=== PATIENT | female | born 2005 | race Hispanic/Latino ===

== ENCOUNTER 2023-02-15 15:41 | Emergency (ER) | payer OTHER ==
[~2023-02-15] VITALS: Ht 157.5 cm; Wt 56.0 kg
[2023-02-15 18:01] LABS: BASO # 0.1 10^3/uL (0.0-0.2); BASO % 0.8 % (0.0-1.0); EOS # 0.1 10^3/uL (0.0-0.5); EOS % 1.2 % (0.0-3.0); HEMOGLOBIN 11.7 g/dl (12.0-15.5); LYMPH % 33.7 % (24.0-44.0); MEAN CORPUSCULAR HEMOGLOBIN 28.7 pg (27.0-33.0); MEAN CORPUSCULAR HGB CONC 32.5 g/dl (32.0-36.5); MEAN CORPUSCULAR VOLUME 88.5 fl (80.0-96.0); MONO # 0.4 10^3/uL (0.0-0.8); NEUTROPHILS # 3.4 10^3/uL (1.5-8.5); NEUTROPHILS % 57.1 % (36.0-66.0); PLATELET COUNT, AUTOMATED 230 10^3/uL (150-450); RED BLOOD COUNT 4.07 10^6/uL (4.00-5.40)
[2023-02-15 18:10] LABS: LIPASE 33 U/L (12-53)
[2023-02-15 18:12] LABS: ALBUMIN 4.3 G/DL (3.2-5.2); ALKALINE PHOSPHATASE 89 U/L (46-116); ALT/SGPT 11 U/L (7.0-40); AST/SGOT 15 U/L (<34); BILIRUBIN,DIRECT 0.1 MG/DL (<0.4); BILIRUBIN,TOTAL 0.4 MG/DL (0.3-1.2); BLOOD UREA NITROGEN 14 MG/DL (9-23); CALCIUM LEVEL 9.7 MG/DL (8.5-10.1); CARBON DIOXIDE LEVEL 25 MMOL/L (20-31); CHLORIDE LEVEL 106 MMOL/L (98-107); CREATININE FOR GFR 0.69 MG/DL (0.55-1.30); GLUCOSE, FASTING 88 MG/DL (60-100); SODIUM LEVEL 139 MMOL/L (136-145)
[2023-02-15 18:23] LABS: HCG, SERUM QUALITATIVE NEGATIVE (NEGATIVE)
[2023-02-15 20:40] VITALS: BP 112/67; TEMP 98.5; O2SAT 100
[2023-02-15 20:55] LABS: GC DNA AMPLIFICATION NEGATIVE (NEGATIVE)
== END 2023-02-15 20:41 | disposition home or self-care (01) ==
LOC: M ED 15:41
DX: N83.11 Corpus luteum cyst of right ovary (principal)

== ENCOUNTER 2023-05-16 16:33 | Emergency (ER) | payer OTHER ==
[~2023-05-16] VITALS: Ht 157.5 cm; Wt 50.3 kg
[2023-05-16] MEDS ORDERED: IBUP-1114 PO (16:59)
[2023-05-16] MEDS ORDERED: OXYC1TAB23 PO (16:59)
[2023-05-16] MEDS ORDERED: PROC5TAB57 PO (17:00)
[2023-05-16] MEDS ORDERED: NS 1,000 ML IV ONE (18:05)
[2023-05-16 18:32] LABS: BLOOD UREA NITROGEN 10 MG/DL (9-23); CALCIUM LEVEL 8.9 MG/DL (8.5-10.1); CARBON DIOXIDE LEVEL 23 MMOL/L (20-31); CHLORIDE LEVEL 103 MMOL/L (98-107); CREATININE FOR GFR 0.64 MG/DL (0.55-1.30); GLUCOSE, FASTING 109 MG/DL (60-100); POTASSIUM SERUM 3.4 MMOL/L (3.5-5.1); SODIUM LEVEL 136 MMOL/L (136-145)
[2023-05-16 18:46] LABS: HCG, SERUM QUANTITATIVE 3964.6 MIU/ML (<4.2)
[2023-05-16 19:02] LABS: BASO % 0.4 % (0.0-1.0); EOS % 0.1 % (0.0-3.0); HEMATOCRIT 32.7 % (36.0-47.0); HEMOGLOBIN 11.3 g/dl (12.0-15.5); LYMPH # 0.7 10^3/uL (1.5-5.0); LYMPH % 9.3 % (24.0-44.0); MEAN CORPUSCULAR HGB CONC 34.6 g/dl (32.0-36.5); MEAN CORPUSCULAR VOLUME 83.8 fl (80.0-96.0); MONO # 0.4 10^3/uL (0.0-0.8); MONO % 5.5 % (2.0-8.0); NEUTROPHILS # 6.6 10^3/uL (1.5-8.5); NEUTROPHILS % 84.6 % (36.0-66.0); PLATELET COUNT, AUTOMATED 168 10^3/uL (150-450); WHITE BLOOD COUNT 7.8 10^3/uL (4.0-10.0)
[2023-05-16] MEDS ORDERED: METHYLERGONOVINE MALEATE 0.2MG/ML 1ML VIAL IM STA (21:02)
[2023-05-16] MEDS ORDERED: AMBI10TA PO (21:49)
[2023-05-16] MEDS ORDERED: METH0.2T53 PO (21:49)
[2023-05-16 22:20] VITALS: BP 96/72; TEMP 98.2; O2SAT 99
== END 2023-05-16 22:22 | disposition home or self-care (01) ==
LOC: M ED 16:33
DX: O03.4 Incomplete spontaneous abortion without complication (principal)
CPT/HCPCS: 36415; 76801; 80048; 84702; 85025; 86850; 86900; 86901; 96372; 99284; J2210

== ENCOUNTER 2023-07-31 10:38 | Emergency (ER) | payer OTHER ==
[~2023-07-31] VITALS: Ht 157.5 cm; Wt 50.5 kg
[~2023-07-31 10:38] MED LIST: AMBI10TA PO; IBUP-1114 PO; METH0.2T53 PO; OXYC1TAB23 PO; PROC5TAB57 PO
[2023-07-31 11:59] LABS: BASO % 0.5 % (0.0-1.0); EOS # 0.1 10^3/uL (0.0-0.5); EOS % 0.9 % (0.0-3.0); HEMATOCRIT 34.8 % (36.0-47.0); HEMOGLOBIN 11.9 g/dl (12.0-15.5); LYMPH # 1.7 10^3/uL (1.5-5.0); LYMPH % 26.8 % (24.0-44.0); MEAN CORPUSCULAR HEMOGLOBIN 29.2 pg (27.0-33.0); MEAN CORPUSCULAR HGB CONC 34.2 g/dl (32.0-36.5); MEAN CORPUSCULAR VOLUME 85.5 fl (80.0-96.0); MONO # 0.3 10^3/uL (0.0-0.8); NEUTROPHILS # 4.3 10^3/uL (1.5-8.5); NEUTROPHILS % 66.6 % (36.0-66.0); PLATELET COUNT, AUTOMATED 191 10^3/uL (150-450); RED BLOOD COUNT 4.07 10^6/uL (4.00-5.40); WHITE BLOOD COUNT 6.4 10^3/uL (4.0-10.0)
[2023-07-31 12:23] LABS: BLOOD UREA NITROGEN 6 MG/DL (9-23); CALCIUM LEVEL 8.9 MG/DL (8.5-10.1); CARBON DIOXIDE LEVEL 26 MMOL/L (20-31); CHLORIDE LEVEL 105 MMOL/L (98-107); CREATININE FOR GFR 0.57 MG/DL (0.55-1.30); GLUCOSE, FASTING 90 MG/DL (60-100); SODIUM LEVEL 136 MMOL/L (136-145)
[2023-07-31 12:25] LABS: HCG, SERUM QUALITATIVE POSITIVE (NEGATIVE)
[2023-07-31 14:39] LABS: HCG, SERUM QUANTITATIVE 86067.3 MIU/ML (<4.2)
[2023-07-31 15:19] VITALS: BP 99/58; TEMP 98.6; O2SAT 97
== END 2023-07-31 15:25 | disposition home or self-care (01) ==
LOC: M ED 10:38
DX: O26.891 Other specified pregnancy related conditions, first trimester (principal); Z3A.08 8 weeks gestation of pregnancy; Z87.59 Personal history of other complications of pregnancy, childbirth and the puerperium

== ENCOUNTER 2023-08-24 11:01 | Emergency (ER) | payer OTHER ==
[~2023-08-24] VITALS: Ht 157.5 cm; Wt 49.1 kg
[2023-08-24] MEDS: METOCLOPRAMIDE INJ 10MG/2ML VIAL IV ONE (12:31)
[2023-08-24] MEDS: NS 1,000 ML IV ONE (12:31)
[2023-08-24] MEDS: ACETAMINOPHEN *IV* 1,000 MG in IV 1 EA IV ONE (12:31)
[2023-08-24 12:45] LABS: BASO % 0.3 % (0.0-1.0); EOS % 0.6 % (0.0-3.0); HEMATOCRIT 31.9 % (36.0-47.0); LYMPH # 1.6 10^3/uL (1.5-5.0); LYMPH % 24.3 % (24.0-44.0); MEAN CORPUSCULAR HEMOGLOBIN 29.1 pg (27.0-33.0); MEAN CORPUSCULAR HGB CONC 34.5 g/dl (32.0-36.5); MEAN CORPUSCULAR VOLUME 84.4 fl (80.0-96.0); MONO # 0.4 10^3/uL (0.0-0.8); MONO % 5.5 % (2.0-8.0); NEUTROPHILS # 4.4 10^3/uL (1.5-8.5); NEUTROPHILS % 69.1 % (36.0-66.0); PLATELET COUNT, AUTOMATED 174 10^3/uL (150-450); RED BLOOD COUNT 3.78 10^6/uL (4.00-5.40); WHITE BLOOD COUNT 6.4 10^3/uL (4.0-10.0)
[2023-08-24 13:07] LABS: LIPASE 25 U/L (12-53)
[2023-08-24 13:09] LABS: ALBUMIN 3.5 G/DL (3.2-5.2); ALKALINE PHOSPHATASE 56 U/L (46-116); ALT/SGPT 12 U/L (7.0-40); AST/SGOT 11 U/L (<34); BILIRUBIN,DIRECT 0.1 MG/DL (<0.4); BILIRUBIN,TOTAL 0.4 MG/DL (0.3-1.2); BLOOD UREA NITROGEN 6 MG/DL (9-23); CALCIUM LEVEL 8.5 MG/DL (8.5-10.1); CARBON DIOXIDE LEVEL 24 MMOL/L (20-31); CHLORIDE LEVEL 108 MMOL/L (98-107); CREATININE FOR GFR 0.51 MG/DL (0.55-1.30); GLUCOSE, FASTING 81 MG/DL (60-100); POTASSIUM SERUM 3.6 MMOL/L (3.5-5.1); SODIUM LEVEL 138 MMOL/L (136-145); TOTAL PROTEIN 6.3 G/DL (5.7-8.2)
[2023-08-24 13:10] VITALS: BP 96/55; TEMP 97.4; O2SAT 100
[2023-08-24 13:35] LABS: RSV AMPLIFICATION NEGATIVE (NEGATIVE)
[2023-08-24 14:38] LABS: AMORPHOUS SEDIMENT SMALL (NEGATIVE); APPEARANCE, URINE CLOUDY (CLEAR); BACTERIA, URINE AUTO 1+ (NEGATIVE); BILIRUBIN, URINE AUTO NEGATIVE (NEGATIVE); BLOOD, URINE BLOOD NEGATIVE (NEGATIVE); COLOR, URINE YELLOW (YELLOW); GLUCOSE, URINE (UA) AUTO NEGATIVE (NEGATIVE); KETONE, URINE AUTO 1+ mg/dL (NEGATIVE); LEUKOCYTE ESTERASE, URINE AUTO 1+ (NEGATIVE); MUCUS, URINE SMALL (NEGATIVE); NITRITE, URINE AUTO NEGATIVE (NEGATIVE); PROTEIN, URINE AUTO NEGATIVE (NEGATIVE); RBC, URINE AUTO 0 /HPF (0-3); SPECIFIC GRAVITY URINE AUTO 1.015 (1.002-1.035); SQUAMOUS EPITHELIAL CELL UR AU 5 /HPF (0-6); UROBILINOGEN, URINE AUTO 0.2 mg/dL (0.0-2.0); WBC, URINE AUTO 7 /HPF (0-3)
[2023-08-24] MEDS ORDERED: ONDA4TAB6 PO (15:15)
== END 2023-08-24 15:20 | disposition home or self-care (01) ==
LOC: M ED 11:01
DX: R51.9 Headache, unspecified (principal); Z3A.10 10 weeks gestation of pregnancy
CPT/HCPCS: 76801; 80048; 80076; 81001; 83690; 85025; 87086; 87631; 96365; 96375; 99284; J0131; J2765